=== PATIENT | female | born 1995 | race African-American/Black ===

== ENCOUNTER 2016-12-24 20:05 | Emergency (ER) | payer OTHER ==
[2016-12-24 19:38] LABS: INFLUENZA A POS (NEG); INFLUENZA B NEG (NEG)
[~2016-12-24 20:05] MED LIST: ZOFRAN PO
[2016-12-24 20:08] LABS: URINE SOURCE CLEAN CATCH
[2016-12-24 20:14] LABS: URINE APPEARANCE CLOUDY; URINE BILIRUBIN NEG (NEG); URINE BLOOD NEG (NEG); URINE COLOR YELLOW; URINE GLUCOSE NEG (NEG); URINE KETONE TRACE (NEG); URINE LEUKOCYTE ESTERASE 2+ (NEG); URINE NITRATE NEG (NEG); URINE PROTEIN NEG (NEG); URINE SPECIFIC GRAVITY 1.007 (1.003-1.035); URINE UROBILINOGEN 0.2 MG/DL (NEG)
[2016-12-24 20:18] LABS: CULTURE INDICATED? YES; URBCS1 AUWI 0-2 /[HPF] (0-2); URINE BACTERIA AUWI 1+ (NEGATIVE); URINE SQUAMOUS EPITHELIAL CELL FEW /[HPF]
== END 2016-12-24 20:59 | disposition home or self-care (01) ==
LOC: CFTX 20:05
PROVIDERS: Nurse Practitioner Family
DX: J10.1 Influenza due to other identified influenza virus with other respiratory manifestations (principal)
CPT/HCPCS: 81003; 84703; 87086; 87804; 99284

== ENCOUNTER 2017-03-10 07:52 | Emergency (ER) | payer OTHER | END 2017-03-10 08:50 | disposition home or self-care (01) | LOC: CED 07:52 → CFTX 07:52 | DX: J06.9 Acute upper respiratory infection, unspecified (principal) | CPT/HCPCS: 87651; 99283 ==